=== PATIENT | female | born 1960 | race Caucasian/White ===

== ENCOUNTER 2017-05-15 14:18 | Emergency (ER) | payer OTHER ==
[~2017-05-15] VITALS: Wt 63.5 kg
[~2017-05-15 14:18] MED LIST: ATARAX25 MG PO; CEPHALEXIN500 M1 PO; CLINDAMYCIN HC300 MG PO; FIORICET 325 MG1 TAB PO; FLEXERIL5 MG PO; HYDROCODONE BIT1 T11 PO; HYDROXYZINE PAM50 MG PO; KEFLEX500 MG PO; MOTRIN800 MG PO; NAPROSYN500 MG PO; NORCO 325 MG-51 TAB PO; PARAFON FORTE500 MG PO; PAROXETINE HCL10 MG PO; PEN-VEE K500 MG PO; PEN-VK500 MG PO; PENICILLIN VK500 MG PO; PENICILLIN-VK500 MG PO; PERCOCET 325 MG1 TA2 PO; PERCOCET 325 MG1 TA5 PO; PHENERGAN W/ DE30 ML PO; PREDNICOT10 MG PO; PREDNICOT20 MG PO; PROAIR HFA0.09 MG/AC INH; ULTRAM50 MG PO; VALIUM5 MG PO; VIBRAMYCIN100 MG PO; VICODIN ES 7501 TAB PO; VOLTAREN50 M1 PO; XANAX1 MG PO; ZITHROMAX250 MG PO
[2017-05-15] MEDS ORDERED: Motrin,Rufen800 MG PO (16:29)
== END 2017-05-15 16:35 | disposition home or self-care (01) ==
LOC: ED 14:18
DX: S46.912A Strain of unspecified muscle, fascia and tendon at shoulder and upper arm level, left arm, initial encounter (principal); S16.1XXA Strain of muscle, fascia and tendon at neck level, initial encounter; F17.200 Nicotine dependence, unspecified, uncomplicated; Z88.6 Allergy status to analgesic agent; Z88.1 Allergy status to other antibiotic agents; X58.XXXA Exposure to other specified factors, initial encounter; Y93.89 Activity, other specified; Y92.89 Other specified places as the place of occurrence of the external cause; Y99.8 Other external cause status